=== PATIENT | male | born 1980 | race Caucasian/White ===

== ENCOUNTER 2021-06-15 06:25 | Day surgery (SDC) | payer BC ==
[2021-06-15] MEDS ORDERED: Ringers Lactate 1,000 ML IV ONE (07:05)
[2021-06-15] MEDS: CEFOXITIN/SWI 1gm 1 GM/10 ML SYR ONE ×2 (07:30→07:33)
[2021-06-15] MEDS ORDERED: propofoL 200 MG/20 ML VIAL IV ONE (07:35)
[2021-06-15] MEDS ORDERED: ROCURONIUM 50 MG/5 ML VIAL IV ONE (07:35)
[2021-06-15] MEDS ORDERED: GLYCOPYRROLATE 0.2 MG/ML SYR ONE (07:35)
[2021-06-15] MEDS ORDERED: LIDOCAINE 2% MPF 5 ML VIAL ONE (07:35)
[2021-06-15] MEDS ORDERED: FENTANYL CITR 250 MCG/5 ML ONE (07:36)
[2021-06-15] MEDS ORDERED: MIDAZOLAM HCL 2 MG/2 ML INJ ONE (07:36)
[2021-06-15] MEDS ORDERED: ONDANSETRON 4 MG/2 ML VIAL ONE (07:40)
[2021-06-15] MEDS ORDERED: ACETAMINOPHEN 500 MG TAB ONE (07:41)
[2021-06-15] MEDS ORDERED: SCOPOLAMINE HYDROBROMIDE PATCH TD ONE (07:41)
[2021-06-15] MEDS ORDERED: CELECOXIB 100 MG CAPSULE ONE (07:41)
[2021-06-15] MEDS ORDERED: BUPIVACAINE 0.5% PF 10 ML VIAL ONE (07:42)
[2021-06-15] MEDS ORDERED: EPHEDRINE SULF 50 MG/ML VIAL ONE (08:31)
[2021-06-15] MEDS ORDERED: dexAMETHasone 10 MG/ML VIAL ONE (08:34)
[2021-06-15] MEDS ORDERED: KETOROLAC 30 MG/ML INJ ONE (08:34)
[2021-06-15] MEDS: HYDROMORPHONE HCL 1 MG/ML INJ ONE ×2 (08:58→09:17)
[2021-06-15] MEDS ORDERED: FENTANYL CITR 100 MCG/2 ML ONE (09:03)
[2021-06-15 09:15] VITALS: O2SAT 98
--- NOTE | 2021-06-15 09:55 | OP ---
Date of Procedure: 06/15/2021 Surgeon: Kedar Ruiz MD Polisher Sand: GANESH Dhillon. Preoperative Diagnosis: Chronic cholecystitis and cholelithiasis. Postoperative Diagnosis: Chronic cholecystitis and cholelithiasis with small umbilical hernia. Procedures Performed: Laparoscopic cholecystectomy, repair of umbilical hernia. Estimated Blood Loss: Minimal. Specimen: Gallbladder. Finding: As above. Anesthesia: General. Complications: None. Disposition: The patient tolerated the procedure in stable condition and taken to Recovery in good g eneral condition. Procedure In Detail: The patient was brought to the OR and placed in supine position. General anest hesia begun. The patient was prepped and draped in the usual sterile fashion. Marcaine 0.5% was inf iltrated locally. A 15-blade was used to make a 1 cm supraumbilical midline incision. Subcutaneous tissue was divided and deep subcutaneous tissue with small umbilical hernia identified approximately 0.5 cm in diameter. The fascia and were opened approximately 1 cm and #1 Vicryl stay sutu res were placed and then peritoneal cavity was entered with sharp and blunt dissection. A 12 mm troc ar was placed into the peritoneal cavity under direct vision. Pneumoperitoneum was established and t hen three 5 mm trocars were placed, 1 in the epigastrium just to the right of midline and 2 in the ri ght subcostal region. Laparoscopy revealed chronic inflammation of the gallbladder. Fundus was iden tified and retracted superiorly. Infundibulum was identified and retracted inferolaterally. Cystic duct and cystic artery were clearly identified with blunt dissection. Clips were placed. Both struc tures were divided. Cautery was used to remove the gallbladder from the liver bed. Bleeding on the liver bed was controlled with cautery. Gallbladder was retrieved through the EndoCatch bag. Right u pper quadrant was irrigated. Effluent was clear. No evidence of bleeding or bile leakage appreciate d. Subsequently, all trocars were removed under direct vision. Stay sutures were tied to each other to approximate the fascial defect and closed the hernia defect. Subcutaneous wounds were irrigated. Bleeding was controlled with cautery. A 3-0 chromic was used to approximate the subcutaneous tissu e and close the skin. Dressing applied. The patient was awakened and taken to Recovery in good gene ral condition. Discharge Note: The patient will go to Day Surgery and home when stable. Disposition: Home. Condition: Stable. Discharge Instructions: Resume home medications and diet. Activity as tolerated. No heavy lifting. Remove outer dressing in 2 days. Shower. Keep wound clean and dry. Keep Steri-Strips on at all t imes. Follow up in my office in 1 week. Call for appointment. Tylenol No.3 one tablet p.o. q.4 p.r .n. pain. /MODL Voice ID: [id number] Report ID: [id number]
[2021-06-15 10:03] VITALS: BP 104/66; TEMP 97.9
[2021-06-15] MEDS ORDERED: HYDROCODONE/APAP 7.5/325 MG TAB ONE (10:11)
== END 2021-06-15 10:40 | disposition home or self-care (01) ==
LOC: OR 06:25
PROVIDERS: ATTEND Surgery
PROC: 0WQF0ZZ Repair Abdominal Wall, Open Approach (ICD-10-PCS; 2021-06-15)
PROC: 0FT44ZZ Resection of Gallbladder, Percutaneous Endoscopic Approach (ICD-10-PCS; principal; 2021-06-15 07:30)
DX: K80.10 Calculus of gallbladder with chronic cholecystitis without obstruction (principal); K42.9 Umbilical hernia without obstruction or gangrene
CPT/HCPCS: 88304; 47562; 49585; J2704; J2250; J3010 ×2; J1100; J1170; J7120; J2405